=== PATIENT | male | born 1950 | race Caucasian/White ===

== ENCOUNTER → 2019-03-27 | Outpatient (CLI) | payer MEDICARE, OTHER ==
[~2019-03-27] MED LIST: OMNIPAQUE 350 MG/ML, 100ML BOTTLE ONE
== END | disposition home or self-care (01) ==
LOC: CFH 15:14
PROVIDERS: ATTEND Internal Medicine
DX: J01.00 Acute maxillary sinusitis, unspecified (principal); J32.0 Chronic maxillary sinusitis; R90.82 White matter disease, unspecified
CPT/HCPCS: 70460; Q9967

== ENCOUNTER 2019-05-03 20:43 | Emergency (ER) | payer MEDICARE, OTHER ==
[~2019-05-03] VITALS: Ht 170.2 cm; Wt 71.4 kg
--- NOTE | 2019-05-03 21:13 | NUR ---
Patient presents to ER with RUQ pain into right chest area. Patient states the pains started Sunday. The pain started in the RLQ and moved up. Patient had one episode of nausea yesterday with no vomiting. Patient thought it might be heart burn and took antacids which did not help. Patient denies nausea now. Patient's lbm was yesterday; no diarrhea. Patient is in NAD. Respirations even and unlabored.
[2019-05-03 21:22] LABS: BASOPHILS # (AUTO) 0.01 x10^3/uL (0-0.1); BASOPHILS % (AUTO) 0 % (0-1); EOSINOPHILS % (AUTO) 1 % (1-7); LYMPHOCYTES # (AUTO) 1.65 x10^3/uL (1-3.4); LYMPHOCYTES % (AUTO) 21 % (22-44); MD NO; MEAN CORPUSCULAR HEMOGLOBIN 31.8 pg (27.5-34.5); MEAN CORPUSCULAR HGB CONC 33.4 g/dL (33.2-36.2); MEAN CORPUSCULAR VOLUME 95.3 fL (81-97); MEAN PLATELET VOLUME 7.8 fL (7.4-10.4); MONOCYTES # (AUTO) 0.65 x10^3/uL (0.2-0.8); MONOCYTES % (AUTO) 8 % (2-9); NEUTROPHILS % (AUTO) 69 % (42-75); PLATELET COUNT 183 x10^3/uL (130-400); RED BLOOD COUNT 4.97 x10^6/uL (4.38-5.82); RED CELL DISTRIBUTION WIDTH 12.4 % (9.4-14.8)
[2019-05-03 21:34] LABS: ALANINE AMINOTRANSFERASE 24 U/L (12-78); ALBUMIN 3.7 g/dL (3.4-5.0); ANION GAP 7 mmol/L (5-15); CALCIUM 9.4 mg/dL (8.5-10.1); CHLORIDE 106 mmol/L (98-107)
[2019-05-03 21:38] LABS: ALKALINE PHOSPHATASE 74 U/L (45-117); BILIRUBIN,TOTAL 1.5 mg/dL (0.2-1.0); TROPONIN I < 0.015 ng/mL (0.000-0.045)
[2019-05-03 21:40] LABS: D-DIMER 1.07 ug/mlFEU (0.00-0.52); INTERNATIONAL NORMALIZED RATIO 0.94 (0.93-1.1)
[2019-05-03] MEDS ORDERED: KETOROLAC 30 MG/1 ML ONE (22:12)
[2019-05-03] MEDS ORDERED: SODIUM CHLORIDE 0.9%, 500ML IVBOLUS ONE (22:30)
[2019-05-03] MEDS ORDERED: KETOROLAC 30 MG/1 ML IVPush ONE (22:30)
[2019-05-03 22:53] VITALS: BP 151/77
--- NOTE | 2019-05-03 23:15 | NUR ---
Patient discharge instructions given. All questions and concerns addressed. Patient ambulatory with a steady gait. Belongings with patient.
== END 2019-05-03 23:17 | disposition home or self-care (01) ==
LOC: ED 21:53
DX: K52.9 Noninfective gastroenteritis and colitis, unspecified (principal)
CPT/HCPCS: 36415; 71045; 71275; 74177; 80053; 83690; 83880; 84484; 85025; 85379; 85610; 85730; 93005; 96374; 99284; J1885; J7040

== ENCOUNTER 2019-09-23 13:46 | Outpatient (CLI) | payer MEDICARE, OTHER ==
[2019-09-23] MEDS ORDERED: OMNIPAQUE 350 MG/ML, 100ML BOTTLE ONE (16:25)
== END 2019-09-23 23:59 | disposition home or self-care (01) ==
LOC: CFH 13:46
PROVIDERS: ATTEND Internal Medicine
DX: D73.89 Other diseases of spleen (principal); R19.03 Right lower quadrant abdominal swelling, mass and lump; M47.9 Spondylosis, unspecified
CPT/HCPCS: 74177; Q9967